=== PATIENT | female | born 1950 | race Caucasian/White ===

== ENCOUNTER 2016-12-20 12:45 | Outpatient (RCR) | payer MEDICARE, BC | END 2016-12-21 | LOC: M PT 12:45 | PROVIDERS: ATTEND Internal Medicine | DX: Z51.89 Encounter for other specified aftercare (principal); I89.0 Lymphedema, not elsewhere classified; C50.919 Malignant neoplasm of unspecified site of unspecified female breast | CPT/HCPCS: 97110; 97140; 97162; G8984; G8985 ==

== ENCOUNTER 2017-01-18 09:15 | Outpatient (RCR) | payer MEDICARE, BC | END 2017-01-20 | LOC: M PT 09:15 | PROVIDERS: ATTEND Internal Medicine | DX: Z51.89 Encounter for other specified aftercare (principal); I89.0 Lymphedema, not elsewhere classified | CPT/HCPCS: 97110; 97140; G0283; G8984; G8985 ==

== ENCOUNTER 2017-02-10 12:45 | Outpatient (RCR) | payer MEDICARE, BC | END 2017-02-20 | LOC: M PT 12:45 | PROVIDERS: ATTEND Internal Medicine | DX: Z51.89 Encounter for other specified aftercare (principal); I89.0 Lymphedema, not elsewhere classified | CPT/HCPCS: 97140; G0283; G8985; G8986 ==

== ENCOUNTER → 2018-07-06 | Outpatient (CLI) | payer MEDICARE, BC | LOC: M PLARAD 15:01 | DX: K76.89 Other specified diseases of liver (principal) | CPT/HCPCS: 74183 ==

== ENCOUNTER → 2019-04-11 | Outpatient (CLI) | payer MEDICARE, BC ==
--- NOTE | 2019-04-11 16:17 | REP ---
Renal ultrasound for evaluation of renal cyst: The right kidney measures 10.5 x 6.0 x 3.2 cm. Left kidney measures 10.6 x 5.1 x 6.2 cm. The kidneys are normal size. Renal cortical echogenicity is normal bilaterally. There is no hydronephrosis. There are no renal calculi. No solid renal masses. There is a right renal upper pole 3.1 cm cyst containing a thin septation. This is a Bosniak type 1 simple cyst. There are no other renal cysts on the right on the left. With color Doppler imaging. There are bilateral ureteral jets into the bladder. Impression: There is a Bosniak type 1, 3.1 cm cyst containing a thin septation ,in the right renal upper pole. Electronically Signed by Augustin Quinonez MD 04/11/2019 04:08 P
== END ==
LOC: M RAD 14:32
PROVIDERS: ATTEND Internal Medicine
DX: N28.1 Cyst of kidney, acquired (principal)